=== PATIENT | male | born 1990 | race Caucasian/White ===

== ENCOUNTER 2023-07-27 20:53 | Emergency (ER) | payer OTHER, BC ==
[2023-07-27] MEDS ORDERED: IBUPROFEN 600 MG TABLET (FP) PO ONE ×2 (21:46→22:05)
[2023-07-27] MEDS ORDERED: DIPHTH,PERTUSS(ACELL),TET 0.5 ML DISP.SYRIN IM ONE ×2 (22:03→22:05)
[2023-07-27 22:05] VITALS: BP 134/104; PULSE 62; RESP 17; TEMP 98; BMI 27.6
== END 2023-07-27 22:13 | disposition home or self-care (01) ==
LOC: FER 20:53
PROC: 3E0234Z Introduction of Serum, Toxoid and Vaccine into Muscle, Percutaneous Approach (ICD-10-PCS; principal; 2023-07-27)
DX: S63.91XA Sprain of unspecified part of right wrist and hand, initial encounter (principal); S60.511A Abrasion of right hand, initial encounter; Y04.0XXA Assault by unarmed brawl or fight, initial encounter; Y93.89 Activity, other specified; Y92.828 Other wilderness area as the place of occurrence of the external cause
CPT/HCPCS: 73130-TC-RT-FY; 90715; 99283-25

== ENCOUNTER 2024-03-02 18:58 | Emergency (ER) | payer OTHER ==
[2024-03-02 19:08] VITALS: BP 144/89; PULSE 89; RESP 18; TEMP 98; BMI 27.6
[2024-03-02] MEDS ORDERED: IBUPROFEN 600 MG TABLET (FP) PO ONE (20:58)
[2024-03-02] MEDS: IBUPROFEN 600 MG TABLET (FP) PO ONE (20:59)
== END 2024-03-02 21:22 | disposition home or self-care (01) ==
LOC: FER 18:58
DX: S46.312A Strain of muscle, fascia and tendon of triceps, left arm, initial encounter (principal); Y35.811A Legal intervention involving manhandling, law enforcement official injured, initial encounter
CPT/HCPCS: 73060-TC-LT-FY; 99283-25